=== PATIENT | female | born 2000 | race Two or more races ===

== ENCOUNTER 2020-11-20 08:56 | Emergency (ER) | payer SELFPAY ==
[~2020-11-20] VITALS: Ht 147.3 cm; Wt 85.0 kg
[2020-11-20 08:58] VITALS: BP 131/83
--- NOTE | 2020-11-20 10:16 | NUR ---
Patient given discharge instructions and they have confirmed that they understand the instructions. Patient ambulatory with steady gait. Addendum: 11/20/20 at 1016 by OLIVA Patient given discharge instructions and they have confirmed that they understand the instructions. Patient ambulatory with steady gait using provided crutches.
== END 2020-11-20 10:40 | disposition home or self-care (01) ==
LOC: ED 10:00
DX: S93.402A Sprain of unspecified ligament of left ankle, initial encounter (principal); E66.9 Obesity, unspecified; Z68.39 Body mass index [BMI] 39.0-39.9, adult; X50.1XXA Overexertion from prolonged static or awkward postures, initial encounter; Y93.89 Activity, other specified; Y92.009 Unspecified place in unspecified non-institutional (private) residence as the place of occurrence of the external cause; Y99.8 Other external cause status
CPT/HCPCS: 99284